=== PATIENT | male | born 1990 | race Caucasian/White ===

== ENCOUNTER 2024-07-07 09:17 | Outpatient (CLI) | payer BC, SELFPAY ==
--- OUTSIDE RECORDS SUMMARY | 2024-07-08 04:07 | XMS_ITS | Data Portability ---
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 Lab CBC w/ auto diff 2023 024 SARA LABMARQUEZ, Aric [facility], [address] [address], [place], [address], 4 04:36:29 CMP, serum or plasma 2023 024 SARA LABMARQUEZ, [facility], [facility] [address], [place], [address], 4 04:36:29 lipid panel, serum 2023 024 SARA LABMARQUEZ, [facility], [facility] [address], [place], [address], 4 04:36:28 HIV (1+2) Ab screen, serum 2023 024 [place] [address] LABMARQUEZ, [address] [place] [address], [address], [place], [address], 12:59:57 Referral None recorded. Procedures polysomnogr aphy, diagnostic (PROC) - No precert needed for updated procedure codeLast action noteTried to start a case via Availity. Per portal, the request is handled by Jose L. Call to process this request. Called Careondinan twice at the number provided to verify precertific ation requirement s. Spoke with an Tere EO. (Complete call reference: [email or web address] [facility] provided information and was advised that there is already an exam on file that was approved, with Order number [id number], validity timeframe of 03-08-2024 to 05-06-2024. Payer cannot verify the specific CPT [address], [address] [place], [address], 15:18:03 Surgeries None recorded. Imaging None recorded. Medication Orders None recorded. Patient TargetsNo targets recorded. Patient InstructionsNo instructions recorded. Reason for Referral None Reported. Results Created Date Observation Date Name Description Value Unit Range Abnormal Flag Note LastModifiedBy Organization Detail LastModifiedTime 02/23/2002/24/2024 LIPID PANEL cholesterol, total 268 mg/dL 100-19 9 above high normal Not Available [facility] ([facility]) [address] [facility], [place], [address], 02/24/2024 04:36:28 02/23/20 24 02/24/2024 LIPID PANEL triglyceride s 226 mg/dL 0-149 above high normal Not Available [facility] ([facility]) [address] [facility], [place], [address], 02/24/2024 04:36:28 02/23/20 24 02/24/2024 LIPID PANEL HDL cholesterol 47 mg/dL >39 Not Available [facility] ([facility]) [address] [place], [address], 02/24/2024 04:36:28 02/23/20 24 02/24/2024 LIPID PANEL VLDL cholesterol chaz 43 mg/dL 5-40 above high normal Not Available [facility] ([facility]) [address] [facility], [place], [address], 02/24/2024 04:36:28 02/23/20 24 02/24/2024 LIPID PANEL LDL chol calc ([facility]) 178 mg/dL 0-99 above high normal Not Available [facility] ([facility]) [address] [place], [address], 02/24/2024 04:36:28 02/23/20 24 02/24/2024 COMP. METAB OLIC PANEL (14) glucose 110 mg/dL 70-99 above high normal Not Available [facility] ([facility]) [address] [place], [address], 02/24/2024 04:36:28 02/23/20 24 02/24/2024 COMP. METAB OLIC PANEL (14) BUN 8 mg/dL 6-20 Not Available [facility] ([facility]) [address] [place], [address], 02/24/2024 04:36:28 02/23/20 24 02/24/2024 COMP. METAB OLIC PANEL (14) creatinine 0.85 mg/dL 0.76-1 .27 Not Available [facility] ([facility]) [address] [place], [address], 02/24/2024 04:36:28 02/23/20 24 02/24/2024 COMP. METAB OLIC PANEL (14) eGFR 116 mL/mi n/1.7 3 >59 Not Available [facility] ([facility]) [address] [place], [address], 02/24/2024 04:36:28 02/23/20 24 02/24/2024 COMP. METAB OLIC PANEL (14) BUN/creatini ne ratio 9 9-20 Not Available [facility] ([facility]) [address] [facility], [place], [address], 02/24/2024 04:36:28 02/23/20 24 02/24/2024 COMP. METAB OLIC PANEL (14) sodium 139 mmol/ L 134-14 4 Not Available [facility] ([facility]) [address] [facility], [place], [address], 02/24/2024 04:36:28 02/23/20 24 02/24/2024 COMP. METAB OLIC PANEL (14) potassium 4.5 mmol/ L 3.5-5. 2 Not Available [facility] ([facility]) [address] [facility], [place], [address], 02/24/2024 04:36:28 02/23/20 24 02/24/2024 COMP. METAB OLIC PANEL (14) chloride 104 mmol/ L 96-106 Not Available [facility] ([facility]) [address] [facility], [place], [address], 02/24/2024 04:36:28 02/23/20 24 02/24/2024 COMP. METAB OLIC PANEL (14) carbon dioxide, total 22 mmol/ L 20-29 Not Available [facility] ([facility]) [address] [facility], [place], [address], 02/24/2024 04:36:28 02/23/20 24 02/24/2024 COMP. METAB OLIC PANEL (14) calcium 9.2 mg/dL 8.7-10 .2 Not Available [facility] ([facility]) [address] [facility], [place], [address], 02/24/2024 04:36:28 02/23/20 24 02/24/2024 COMP. METAB OLIC PANEL (14) protein, total 6.7 g/dL 6.0-8. 5 Not Available [facility] ([facility]) [address], [place], [address], 02/24/2024 04:36:28 02/23/20 24 02/24/2024 COMP. METAB OLIC PANEL (14) albumin 4.5 g/dL 4.1-5. 1 Not Available [facility] ([facility]) [address], [place], [address], 02/24/2024 04:36:28 02/23/20 24 02/24/2024 COMP. METAB OLIC PANEL (14) globulin, total 2.2 g/dL 1.5-4. 5 Not Available [facility] ([facility]) [address] [facility], [place], [address], 02/24/2024 04:36:28 02/23/20 24 02/24/2024 COMP. METAB OLIC PANEL (14) bilirubin, total 0.5 mg/dL 0.0-1. 2 Not Available [facility] ([facility]) [address] [facility], [place], [address], 02/24/2024 04:36:28 02/23/20 24 02/24/2024 COMP. METAB OLIC PANEL (14) alkaline phosphatase 53 IU/L 44-121 Not Available [facility] ([facility]) [address] [facility], [place], [address], 02/24/2024 04:36:28 02/23/20 24 02/24/2024 COMP. METAB OLIC PANEL (14) AST (SGOT) 25 IU/L 0-40 Not Available [facility] ([facility]) [address] [facility], [place], [address], 02/24/2024 04:36:28 02/23/20 24 02/24/2024 COMP. METAB OLIC PANEL (14) ALT (SGPT) 44 IU/L 0-44 Not Available [facility] ([facility]) [address] [facility], [place], [address], 02/24/2024 04:36:28 02/23/20 24 02/23/2024 CBC WITH DIFFE RENTI AL/PL ATELE T WBC 5.2 x10e3 /uL 3.4-10 .8 Not Available [facility] ([facility]) [address] [facility], [place], [address], 02/24/2024 04:36:29 02/23/20 24 02/23/2024 CBC WITH DIFFE RENTI AL/PL ATELE T RBC 5.15 x10e6 /uL 4.14-5 .80 Not Available [facility] ([facility]) [address] [facility], [place], [address], 02/24/2024 04:36:29 02/23/20 24 02/23/2024 CBC WITH DIFFE RENTI AL/PL ATELE T hemoglobin 15.4 g/dL 13.0-1 7.7 Not Available [facility] ([facility]) [address] [facility], [place], [address], 02/24/2024 04:36:29 02/23/20 24 02/23/2024 CBC WITH DIFFE RENTI AL/PL ATELE T hematocrit 47.0 % 37.5-5 1.0 Not Available [facility] ([facility]) [address] [place], [address], 02/24/2024 04:36:29 02/23/20 24 02/23/2024 CBC WITH DIFFE RENTI AL/PL ATELE T MCV 91 fL 79-97 Not Available [facility] ([facility]) [address] [place], [address], 02/24/2024 04:36:29 02/23/20 24 02/23/2024 CBC WITH DIFFE RENTI AL/PL ATELE T MCH 29.9 pg 26.6-3 3.0 Not Available [facility] ([facility]) [address] [place], [address], 02/24/2024 04:36:29 02/23/20 24 02/23/2024 CBC WITH DIFFE RENTI AL/PL ATELE T MCHC 32.8 g/dL 31.5-3 5.7 Not Available [facility] ([facility]) [address] [facility], [place], [address], 02/24/2024 04:36:29 02/23/20 24 02/23/2024 CBC WITH DIFFE RENTI AL/PL ATELE T RDW 12.5 % 11.6-1 5.4 Not Available [facility] ([facility]) [address] [facility], [place], [address], 02/24/2024 04:36:29 02/23/20 24 02/23/2024 CBC WITH DIFFE RENTI AL/PL ATELE T platelets 232 x10e3 /uL 150-45 0 Not Available [facility] ([facility]) [address] [facility], [place], [address], 02/24/2024 04:36:29 02/23/20 24 02/23/2024 CBC WITH DIFFE RENTI AL/PL ATELE T neutrophils 53 % notest ab. Not Available [facility] ([facility]) [address] [facility], [place], [address], 02/24/2024 04:36:29 02/23/20 24 02/23/2024 CBC WITH DIFFE RENTI AL/PL ATELE T lymphs 33 % notest ab. Not Available [facility] ([facility]) [address] [facility], [place], [address], 02/24/2024 04:36:29 02/23/20 24 02/23/2024 CBC WITH DIFFE RENTI AL/PL ATELE T monocytes 10 % notest ab. Not Available [facility] ([facility]) [address] [facility], [place], [address], 02/24/2024 04:36:29 02/23/20 24 02/23/2024 CBC WITH DIFFE RENTI AL/PL ATELE T eos 3 % notest ab. Not Available [facility] ([facility]) [address] [place], [address], 02/24/2024 04:36:29 02/23/20 24 02/23/2024 CBC WITH DIFFE RENTI AL/PL ATELE T basos 1 % notest ab. Not Available [facility] ([facility]) [address] [facility], [place], [address], 02/24/2024 04:36:29 02/23/20 24 02/23/2024 CBC WITH DIFFE RENTI AL/PL ATELE T neutrophils (absolute) 2.8 x10e3 /uL 1.4-7. 0 Not Available [facility] ([facility]) [address] [place], [address], 02/24/2024 04:36:29 02/23/20 24 02/23/2024 CBC WITH DIFFE RENTI AL/PL ATELE T lymphs (absolute) 1.7 x10e3 /uL 0.7-3. 1 Not Available [facility] ([facility]) [address] [place], [address], 02/24/2024 04:36:29 02/23/20 24 02/23/2024 CBC WITH DIFFE RENTI AL/PL ATELE T monocytes(ab solute) 0.5 x10e3 /uL 0.1-0. 9 Not Available [facility] ([facility]) [address] [place], [address], 02/24/2024 04:36:29 02/23/20 24 02/23/2024 CBC WITH DIFFE RENTI AL/PL ATELE T eos (absolute) 0.1 x10e3 /uL 0.0-0. 4 Not Available [facility] ([facility]) [address] [place], [address], 02/24/2024 04:36:29 02/23/20 24 02/23/2024 CBC WITH DIFFE RENTI AL/PL ATELE T baso (absolute) 0.0 x10e3 /uL 0.0-0. 2 Not Available [facility] ([facility]) [address] [facility], [place], [address], 02/24/2024 04:36:29 02/23/20 24 02/23/2024 CBC WITH DIFFE RENTI AL/PL ATELE T immature granulocytes 0 % notest ab. Not Available [facility] ([facility]) [address] [facility], [place], [address], 02/24/2024 04:36:29 02/23/20 24 02/23/2024 CBC WITH DIFFE RENTI AL/PL ATELE T immature grans (abs) 0.0 x10e3 /uL 0.0-0. 1 Not Available [facility] ([facility]) [address] [facility], [place], [address], 02/24/2024 04:36:29 02/23/20 24 02/24/2024 HIV AB/P2 4 AG WITH REFLE X HIV Ab/P24 Ag screen Non Reacti ve nonrea ctive HIV-1 /HIV- 2 antib odies and HIV-1 p24 antig en were NOT detec miquel. There is no labor atory evide nce of HIV infec tion. HIV Negat nany Not Available [facility] ([facility]) [address] [facility], [place], [address], 02/24/2024 04:36:30 Result Notes None recorded. Problems Name Problem SNOMED Code Status Onset Date Resolution Date Notes Provider Name and Address Organization Details Recorded Time Adult health examination Active 024 Radha Quiñones MA [facility], [place] - [facility] 16:50:43 Problem Notes None recorded. Medical Equipment None Reported. Allergies No known drug allergies Medications Not known to be on any medication Vitals Date Recorded Body height Provider Name an d Address Organization Details Last Updated DateTime 02/22/2024 180.34 cm Denise Casey MA [facility] 02/22/2024 15:32:10 Date Recorded Body mass index (BMI) Body weight Provider Name and Address Organization Details Last Updated DateTime 02/22/2024 30.7 kg/m2 33424.32 g Denise Casey MA [facility] 02/2024 15:32:15 Date Recorded Heart rate Provider Name an d Address Organization Details Last Updated DateTime 02/22/2024 74 /min Denise Casey MA [facility] 02/22/2024 15:35:09 Date Recorded Oxygen saturation Oxygen saturation in Arterial blood by Pulse oximetry Provider Name and Address Organization Details Last Updated DateTime 02/22/2024 97 % 97 % Denise Casey MA [facility] 02/21 15:35:16 Date Recorded Systolic blood pressure Diastolic blood pressure Provider Name and Address Organization Details Last Updated DateTime 02/22/2024 118 mm[Hg] 88 mm[Hg] Denise Casey MA [facility] 02/2024 15:34:55 Social History Question Answer Notes LastModified by [facility] ion Details LastModified Time Tobacco Smoking Status Former Smoker [facility]ise [facility] 02/22/2024 15:36:37 What Is Your Level Of Alcohol Consumption? Occasional Information not available 02/22/2024 Are You Blind Or Do You Have Difficulty Seeing? No Information not available 02/22/2024 What Is Your Level Of Caffeine Consumption? Occasional Information not available 02/22/2024 In The 14 Days Before Symptom Onset, Have You Had Close Contact With A Laboratory-confir med COVID-19 While That Case Was Ill? No Information not available 02/22/2024 In The 14 Days Before Symptom Onset, Have You Had Close Contact With A Person Who Is Under Investigation For COVID-19 While That Person Was Ill? No Information not available 02/22/2024 Have You Been To An Area Known To Be High Risk For COVID-19? No Information not available 02/22/2024 Are You Currently Employed? Yes Information not available 02/22/2024 Are You Deaf Or Do You Have Serious Difficulty Hearing? No Information not available 02/22/2024 What Type Of Diet Are You Following? REGULAR Information not available 02/22/2024 Are There Any Guns Present In Your Home? No Information not available 02/22/2024 What Was The Date Of Your Most Recent Tobacco Screening? 02/22/2024 Information not available 02/22/2024 Do You Use Your Seat Belt Or Car Seat Routinely? Yes Information not available 02/22/2024 Do You Have Smoke And Carbon Monoxide Detectors In Your Home? Yes Information not available 02/22/2024 Do You Use Any Illicit Or Recreational Drugs? No Information not available 02/22/2024 Do You Use Sunscreen Routinely? Yes Information not available 02/22/2024 Do You Or Have You Ever Used Any Other Forms Of Tobacco Or Nicotine? No Information not available 02/22/2024 Sex: Male Functional Status Question Answer Note LastModified by Organization D etails LastModified Time Are you able to care for yourself? Yes Information n ot available 02/22/2024 Mental Status None recorded. Family History Relationship Description Onset Age of this Age Resolved Age Notes LastModified by Organization Details LastModified Time Father Heart disease [email or web address] Not available 2023 15:35:44 Father Hypertensive disorder [email or web address] Not available 2023 15:35:52 Medical History No medical history recorded. Past Encounters Encounter ID Performer Location Encounter Start Date Encounter Closed Date Diagnosis/Indication Diagnosis SNOMED-CT Code Diagnosis ICD10 Code Diagnosis Note [id number] Amisha Trevino MD [facility] [place] [address] [place] [address] 02/22/2024 14:45:40 02/22/2024 16:19:18 Obesity 847900786 E66.9 HIV screening 256738267 Z11.4 Sleep disorder 48856254 G47.9 Adult heal th examination 865487650 Z00.00 Health Concerns Section Related Observation LastModified by Organization Detai ls LastModified Time None Recorded Concern Status LastModified by Organization Details LastModified Time None Recorded Advance Directives Directive None Recorded Payers Encounter Date Sequence Insurance Name Policy Number Policy Leon Covered Member ID Leon Member ID Guarantor Name 02/22/2024 1 [place] [id number] Saha [id number] [place] [employer] Notes Date Note Type Note Provider Name and Address Organization Details Recorded Time 02/22/2024 text/html 33-year-old new patient meds none allergies none surgeries none family history uncle heart attack socially single quit smoking a year and a half ago does vape drinks weekly 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
--- OUTSIDE RECORDS SUMMARY | 2024-07-08 04:07 | XMS_ITS | Data Portability ---
Author Organization [place] - [facility] [employer], Main Office Address [address] [place] [address] Assessment No assessment recorded. Plan of Treatment Reminders Order Date Submit Date Provider Last Modified By Organization Details Last Modified Time Details Appointments None recorded. Lab CMP, serum or plasma 2022 023 [facility] (Lab), [address] [place], [address], 3 15:29:43 CBC w/ auto diff 2022 023 [facility] (Lab), [address] [place], [address], 3 15:29:43 urinalysis complete, reflex culture 2022 023 [facility] (Lab), [address] [place], [address], 3 15:29:43 lipid panel, serum 2022 023 [facility] (Lab), [address] [place], [address], 3 15:29:43 CBC [address] (Lab), [address] [place], [address], 3 09:27:05 TSH, serum or plasma [address] (Lab), [address] [place], [address], 09:27:06 T4, free, serum 2022 023 [email or web address] [facility] ([facility]), [address] [place], [address], 09:27:06 Referral None recorded. Procedures None recorded. Surgeries None recorded. Imaging None recorded. Medication Orders hydroxyzine HCl 10 mg tablet 2022 023 [id number], [address] [place], [place], [id number], 10:49:48 Patient TargetsNo targets recorded. Patient InstructionsNo instructions recorded. Reason for Referral None Reported. Results Created Date Observation Date Name Description Value Unit Range Abnormal Flag Note LastModifiedBy Organization Detail LastModifiedTime Result Notes None recorded. Problems Name Problem SNOMED Code Status Onset Date Resolution Date Notes Provider Name and Address Organization Details Recorded Time Anxiety 71920123 Active 2022 PRANAV Maria [email or web address], [place], [address], [employer] [facility] 10:39:42 Adult health examination Active 2022 PRANAV Maria [address], [place], [address], [employer] [facility] 10:41:33 Overweight 439823810 Active 2022 PRANAV Maria [address], [place], [address], [employer] [facility] 12:50:59 Hyperlipidemia 64905387 Active 2022 PRANAV Maria [address], [place], [address], [employer] [facility] 09:15:47 Problem Notes None recorded. Medical Equipment None Reported. Allergies No known drug allergies Medications Name Sig Start Date Stop Date Status Note LastModified by Organization Details LastModified Time hydroxyzine HCl 10 mg tablet TAKE 1 TO 2 TABLETS BY MOUTH UP TO THREE TIMES DAILY NEEDED active Not Available Not Available No t Available pitavastatin calcium 2 mg tablet Take 1 tablet every day by oral route in the morning for 30 days. 2022 active Not Available Not Available Not Avai lable Vitals Date Recorded Body height Body mass index (BMI) Body weight Body temperature Heart rate Oxygen saturation Oxygen saturation in Arterial blood by Pulse oximetry Systolic blood pressure Diastolic blood pressure Provider Name and Address Organization Details Last Updated DateTime 180.34 cm 29.1 kg/m2 50278.8 1 g 96.6 [degF] 80 /min 98 % 98 % 128 mm[Hg] 82 mm[Hg] Indira Briceño MA [place] [employer] [facility] [employer] 10:01:12 Date Recorded Body height Provider Name an d Address Organization Details Last Updated DateTime 10/20/2022 180.34 cm Indira madsen MA [employer] 10/20/2022 11:12:06 Social History Question Answer Notes LastModified by Organizat ion Details LastModified Time Tobacco Smoking Status Current Every Day Smoker Indira Briceño MA null [employer] [facility] [employer] 09/23/2022 10:03:27 What Is Your Level Of Alcohol Consumption? Occasional [email or web address] Information not available 09/23/2022 What Is Your Level Of Caffeine Consumption? Moderate [email or web address] Information not available 09/23/2022 What Type Of Diet Are You Following? REGULAR [email or web address] Information not available 09/23/2022 What Is Your Current Pack Years? 10-19packyears [email or web address] Information not available 09/23/2022 At What Age Did You Start Smoking Tobacco? 14 [email or web address] Information not available 09/23/2022 How Much Tobacco Do You Smoke? 1 PPW [email or web address] Information not available 09/23/2022 Do You Use Any Illicit Or Recreational Drugs? Yes [place] [email or web address] Information not available 09/23/2022 Has Tobacco Cessation Counseling Been Provided? No [email or web address] Information not available 09/23/2022 Have You Used IV Drugs? No [email or web address] Information not available 09/23/2022 Do You Have Any Dietary Restrictions? No [email or web address] Information not available 09/23/2022 Sex: Unknown Functional Status Question Answer Note LastModified by Organization D etails LastModified Time What is your exercise level? Moderate [email or web address] Information not available 09/23/2022 Mental Status None recorded. Family History Relationship Description Onset Age of this Age Resolved Age Notes LastModified by Organization Details LastModified Time Mother Heart disease [email or web address] Not available 09/13 10:01:58 Father Heart disease [email or web address] Not available 09/13 10:01:58 Medical History No medical history recorded. Past Encounters Encounter ID Performer Location Encounter Start Date Encounter Closed Date Diagnosis/Indication Diagnosis SNOMED-CT Code Diagnosis ICD10 Code Diagnosis Note [id number] PRANAV Maria [facility] [address] [facility] , [place] [address] 09/23/2022 09:50:57 09/23/2022 10:50:32 Anxiety 60105351 F41.9 Adult heal th examination 016850588 Z00.00 Overweight 458224254 E66 .3 Health Concerns Section Related Observation LastModified by Organization Detai ls LastModified Time None Recorded Concern Status LastModified by Organization Details LastModified Time None Recorded Advance Directives Directive None Recorded Payers Encounter Date Sequence Insurance Name Policy Number Policy Leon Covered Member ID Leon Member ID Guarantor Name 09/23/2022 1 [facility] [place] Saha [id number] [place] [employer] Notes Date Note Type Note Provider Name and Address Organization Details Recorded Time 09/23/2022 text/html anxiety a few years, HAD A RECENT BREAK-UP , GETTING THROUGH IT. HE IS STARTING TO SEE A THERAPIST. His mother has anxiety . He lost a grandparent he was really close to years ago. His thought race, he has problems concentrating. No si/hi. 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 PRANAV Maria [address], [facility] [address], [place], [address], [facility] [email or web address] [facility] 09/23/2022 12:51:25
[2024-07-28 14:41] VITALS: BMI 29.2
--- NOTE | 2024-07-28 14:41 | P.SLEEP_ITS ---
Sleep Study - Home Unattended Date of Study: 07/07/24 Ordering Provider: Nikolay Trevino, Interpreting Provider: Natalie Giraldo, DO Home Sleep Study Type: Watch PAT Height: 1.8 m Weight: 95.254 kg Body Mass Index: 29.2 Neck Circumference (inches): 16.25 Ransom: 6 Reason for Sleep Study snoring, difficulty falling asleep Sleep History The patient is a 34-year-old male that had a sleep study ordered by his primary care for evaluation of sleep apnea. The patient admits to snoring loudly and difficulty falling asleep. He does have interruptions in breathing while asleep. He denies choking or gasping at night. He denies having trouble breathing on his back. He denies morning headaches. He denies having a dry or sore mouth / throat in the morning. He denies nocturnal heartburn. He denies nocturia. He denies having Difficulty staying asleep. He denies having difficulty returning to sleep if he wakes up throughout the night. He denies hypnotic or sedative use. He denies feeling anxious about sleep. He denies feeling tired or sleepy during the day. He denies feeling tired in the morning. He denies having the urge to fall asleep during the day. He does feel drowsy while driving. He denies sleep paralysis, cataplexy and hypnagogic / hypnopompic hallucinations. He does clench or grind his teeth. He denies kicking or jerking his legs excessively. He denies having a restless feeling in his legs. He goes to bed at 10:00 p.m. on work days and at 11:00 p.m. on his days off. It takes him 90 minutes to fall asleep. He gets 8 hours of sleep on his work days and 8-1/2 hours of sleep on his days off. His sleep is somewhat restorative on his days off. He denies taking any planned naps. He denies dream enactment behavior. He denies sleep walking. He consumes 1-2 cups of caffeinated beverage per day. He consumes or than 3 alcoholic beverages at least 1-2 nights per week. He smokes 6-20 cigarettes per day. He denies exercising on a regular basis. Sleep Procedure The sleep study was completed using [employer] a technically adequate device with seven channels: peripheral arterial tone, actigraphy, body position, snore, respiratory movement, pulse oximetry, sleep staging, and heart rate. Prior to using the device, the patient received verbal and written instructions for its application and was provided with the help desk phone number for additional telephonic instruction with 24-hour availability of qualified personnel to answer questions. The study was scored using CMS guidelines. Sleep Architecture The total recording time is 8 hrs, 29 min. The total sleep time is 7 hrs, 15 min. Sleep latency is 6 minutes. REM latency is 82 minutes. The patient had 20 episodes of waking. Sleep architecture shows 23.0% deep sleep, 50.1% light sleep, and (as % Total Sleep Time) showed NREM (Light 50.1%; Deep 23.0%), and a 26.9% stage REM. The patient spent 45.0% of total sleep time in the supine position. Sleep efficiency was 85.46. Respiratory Analysis The overall AHI (pAHI 3%:) is 14.9. The central AHI is 2.3. The AHI was 10.8 in NREM and 25.9 in REM sleep. The AHI was 11.4 in Supine and 17.8 in Non-supine sleep. Percent of Cyrus Figueroa respirations is 0.0. Oximetry Data The oxygen desaturation index (JOSLYN 4%:) is 7.9. The mean saturation is 95%, and the lowest saturation is 82%. Time spent with saturation < 88% is 0.9 minutes. Snoring Profile Snoring average intensity is 44 dB. The patient snored above 45 decibels for 144.2 minutes, 33.1% of sleep time. Cardiac Profile The average pulse rate is 57 beats per minutes. The lowest pulse rate is 41 bpm. The highest pulse rate reported is 99 bpm. Atrial fibrillation was not detected. Premature beats occur 0.1 per minute. Assessment and Plan Assessment and Plan (1) HAYDEN (obstructive sleep apnea): Code(s): G47.33 - Obstructive sleep apnea (adult) (pediatric) Status: Acute Assessment and Plan: The patient had an overall AHI of 7.7 with desaturation down to 82%. This is consistent with mild sleep apnea. Due to the patient's insomnia, he qualifies for treatment. I recommend that the patient be prescribed AutoPAP 5-15 cm H2O, CPAP mask/filters/tubing and heated humidity. A mandibular advancement device is also an acceptable treatment option. This should be used with all episodes of sleep.? Compliance should be reviewed within 31-90 days of starting therapy for usage greater than 4 hours per night greater than 70% of the nights. The patient should be asked about symptoms such as?excessive daytime sleepiness, quality of sleep, decreased nocturia, increased?mental functioning such as memory, mood, and concentration. Data The data obtained during this sleep study is adequate for interpretation. Certification This sleep study has been reviewed by a board certified sleep medicine physician.
== END 2024-07-08 10:59 | disposition home or self-care (01) ==
PROVIDERS: PCP Internal Medicine; Visit Provider Internal Medicine
DX: G47.33 Obstructive sleep apnea (adult) (pediatric) (principal); G47.9 Sleep disorder, unspecified
CPT/HCPCS: 95800